=== PATIENT | male | born 1980 | race Caucasian/White ===

== ENCOUNTER 2018-10-02 10:53 | Emergency (ER) | payer BC, OTHER ==
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
[2018-10-02] MEDS ORDERED: Cyclobenzaprine 10 MG Tab PO ONE (11:04)
[2018-10-02 11:18] VITALS: BP 145/79
== END 2018-10-02 12:00 | disposition home or self-care (01) ==
LOC: MW.ED 10:53
DX: S16.1XXA Strain of muscle, fascia and tendon at neck level, initial encounter (principal); M54.12 Radiculopathy, cervical region; Z79.899 Other long term (current) drug therapy; W22.8XXA Striking against or struck by other objects, initial encounter
CPT/HCPCS: 99283; A9270